=== PATIENT | female | born 1960 | race African-American/Black ===

== ENCOUNTER 2016-10-25 14:00 | Day surgery (SDC) | payer MEDICARE, BC ==
[~2016-10-25] VITALS: Ht 167.6 cm; Wt 129.3 kg
[~2016-10-25 14:00] MED LIST: ALEVE220 M1; ALEVE220 M2 PO; ASTAXANTHIN4 MG PO; AVELOX400 MG OR; AZITHROMYCIN500 MG PO; BACTRIM DS1 TAB PO; CIPRO500 MG PO; CLARITIN10 M1 PO; CYMBALTA60 MG PO; DIFLUCAN150 MG OR; DIFLUCAN150 MG PO; FLEXERIL PO; GLUCOSAMINE500 M1 PO; HYDROCHLOROT12.5 MG PO; HYDROCHLOROT25 MG OR; HYDROCHLOROT25 MG PO; LORTAB 7.5 OR; LORTAB5 PO; MECLIZINE25 MG PO; NEURONTIN300 MG PO; PROAIR HFA IN; TESSALON200 MG PO; TET/DIP TOX1 ML IM; TIZANIDINE4 MG PO; TUBERSOL5 MG/0.1 M ID; TYLENOL325 MG PO; VITAMIN B-12500 MCG PO; ZITHROMAX250 MG PO; ZOFRAN ODT4 MG PO; ZOFRAN ODT8 MG PO
[2016-10-25 16:46] VITALS: BP 127/75
== END 2016-10-25 16:55 | disposition home or self-care (01) ==
LOC: ENDO 14:00 → ORM 18:30 → ENDO 18:30
PROVIDERS: ATTEND Internal Medicine Gastroenterology
PROC: 0DB98ZX Excision of Duodenum, Via Natural or Artificial Opening Endoscopic, Diagnostic (ICD-10-PCS; principal; 2016-10-25)
PROC: 0DBP8ZX Excision of Rectum, Via Natural or Artificial Opening Endoscopic, Diagnostic (ICD-10-PCS; 2016-10-25)
DX: D50.9 Iron deficiency anemia, unspecified (principal); K21.9 Gastro-esophageal reflux disease without esophagitis; K29.70 Gastritis, unspecified, without bleeding; K64.4 Residual hemorrhoidal skin tags; K62.1 Rectal polyp; K64.8 Other hemorrhoids; I10 Essential (primary) hypertension; E73.9 Lactose intolerance, unspecified; Z98.84 Bariatric surgery status

== ENCOUNTER 2016-12-31 06:38 | Day surgery (SDC) | payer MEDICARE, BC ==
[~2016-12-31 06:38] MED LIST changes: +GABAPENTIN300 M2 PO; +TURMERIC450 MG PO
[2016-12-31 07:03] LABS: HEMATOCRIT 42.4 % (37.0-47.0); HEMOGLOBIN 13.2 g/dl (12.0-16.0); IMMATURE GRANULOCYTES 0.2 % (0.0-1.0); MEAN CELL VOLUME 78.7 fL CALC (80.0-100.0); MEAN CORPUSCULAR HGB 24.5 pG CALC (26.0-32.0); MEAN CORPUSCULAR HGB CONC 31.1 g/L CALC (32.0-36.0); NEUT# 1.85 thou/uL (2.00-7.15); RED BLOOD COUNT 5.39 mill/uL (4.20-5.60); RED CELL DISTRI WIDTH 16.7 % (11.5-15.5)
[2016-12-31 07:14] LABS: ALBUMIN 3.7 g/dL (3.2-5.0); ALKALINE PHOSPHATASE 121 u/l (38-126); ANION GAP 13 (6-22 (CALC)); BILIRUBIN, TOTAL 0.5 mg/dL (0.0-1.4); BUN 11 mg/dL (7-17); BUN/CREATININE RATIO 12 (12-20 (CALC)); CALCIUM 8.9 mg/dL (8.4-10.2); CARBON DIOXIDE 32 mmol/l (22-30); CHLORIDE 102 mmol/l (95-108); CREATININE 0.9 mg/dL (0.5-1.0); GFR > 60 ML/MIN (>=60 (CALC)); GFR FOR AFR.AMER. > 60 ML/MIN (>=60 (CALC)); GLUCOSE 98 mg/dL (65-105); POTASSIUM 3.7 mmol/l (3.5-5.1); SGOT/AST 36 u/l (14-36); SGPT/ALT 37 u/l (9-52); SODIUM 143 mmol/l (137-146); TOTAL PROTEIN 7.7 g/dL (6.3-8.2)
[2016-12-31] MEDS ORDERED: LORTAB 7.57.5 MG PO (08:49)
[2016-12-31 09:35] VITALS: BP 138/76
== END 2016-12-31 09:32 | disposition home or self-care (01) ==
LOC: ENDO 06:38 → ORM 07:30 → ENDO 07:30 → ORM 09:30 → ENDO 09:32
PROVIDERS: ATTEND Obstetrics & Gynecology
PROC: 0UDB8ZX Extraction of Endometrium, Via Natural or Artificial Opening Endoscopic, Diagnostic (ICD-10-PCS; principal; 2016-12-31)
DX: N95.0 Postmenopausal bleeding (principal); R93.8 Abnormal findings on diagnostic imaging of other specified body structures; N85.8 Other specified noninflammatory disorders of uterus; N84.0 Polyp of corpus uteri; E66.01 Morbid (severe) obesity due to excess calories; I10 Essential (primary) hypertension; Z98.84 Bariatric surgery status; Z68.42 Body mass index [BMI] 45.0-49.9, adult

== ENCOUNTER 2018-09-21 08:36 | Emergency (ER) | payer MEDICARE, OTHER ==
[~2018-09-21] VITALS: Ht 167.6 cm; Wt 115.0 kg
[~2018-09-21 08:36] MED LIST changes: +LORTAB 7.57.5 MG PO
[2018-09-21 09:24] LABS: HEMOGLOBIN 12.7 g/dl (12.0-16.0); IMMATURE GRANULOCYTES 0.3 % (0.0-5.0); MEAN CELL VOLUME 78.1 fL CALC (80.0-100.0); MEAN CORPUSCULAR HGB 23.6 pG CALC (26.0-32.0); MEAN CORPUSCULAR HGB CONC 30.2 g/L CALC (32.0-36.0); NEUT# 4.32 thou/uL (2.00-7.15); RED BLOOD COUNT 5.38 mill/uL (4.20-5.60); RED CELL DISTRI WIDTH 15.9 % (11.5-15.5)
[2018-09-21] MEDS ORDERED: MEDDOSEPAK PO (10:22)
[2018-09-21] MEDS ORDERED: TORADOL PO (10:22)
[2018-09-21] MEDS ORDERED: FLEXERIL PO (10:22)
[2018-09-21 10:25] VITALS: BP 164/77
[2018-09-21] MEDS ORDERED: SOMA CPD PO (10:34)
== END 2018-09-21 10:44 | disposition home or self-care (01) ==
LOC: ED 08:36
PROVIDERS: Emergency Medicine
DX: M47.812 Spondylosis without myelopathy or radiculopathy, cervical region (principal); M47.816 Spondylosis without myelopathy or radiculopathy, lumbar region; M47.814 Spondylosis without myelopathy or radiculopathy, thoracic region; I10 Essential (primary) hypertension

== ENCOUNTER 2018-12-21 18:10 | Emergency (ER) | payer MEDICARE ==
[~2018-12-21] VITALS: Ht 167.6 cm; Wt 132.0 kg
[~2018-12-21 18:10] MED LIST changes: +MEDDOSEPAK PO; +SOMA CPD PO; +TORADOL PO
[2018-12-21 19:00] VITALS: BP 150/85
== END 2018-12-21 19:01 | disposition home or self-care (01) ==
LOC: ED 18:10
PROC: 09C37ZZ Extirpation of Matter from Right External Auditory Canal, Via Natural or Artificial Opening (ICD-10-PCS; principal; 2018-12-21)
DX: T16.1XXA Foreign body in right ear, initial encounter (principal); I10 Essential (primary) hypertension; X58.XXXA Exposure to other specified factors, initial encounter

== ENCOUNTER 2022-05-06 22:37 | Emergency (ER) | payer MEDICARE ==
[~2022-05-06] VITALS: Ht 167.6 cm; Wt 145.0 kg
[2022-05-07 00:19] VITALS: BP 155/96
== END 2022-05-07 00:26 | disposition home or self-care (01) ==
LOC: ED 22:37
DX: S80.12XA Contusion of left lower leg, initial encounter (principal); I10 Essential (primary) hypertension; X58.XXXA Exposure to other specified factors, initial encounter